=== PATIENT | female | born 1945 | race Caucasian/White ===

== ENCOUNTER 2022-05-12 08:30 | Outpatient (CLI) | payer BC, SELFPAY ==
[2022-05-12 09:07] LABS: Basophils Absolute Auto 0.01 K/uL (0.00-0.30); Basophils Percent Auto 0.2 % (0.0-3.0); Eosinophils Absolute Auto 0.06 K/uL (0.00-0.50); Eosinophils Percent Auto 1.1 % (0.0-7.0); Hematocrit 46.8 % (33.0-51.0); Hemoglobin* 15.7 gm/dL (12.0-16.0); Lymphocytes Percent Auto 13.9 % (20-44); Mean Corpuscular HGB Conc 34 gm/dL (32-36); Mean Corpuscular Hemoglobin 30 pg (26-34); Mean Corpuscular Volume 89 fL (80-100); Monocytes Absolute Auto 0.37 K/UL (0.00-0.90); Monocytes Percent Auto 6.9 % (0.0-11.0); Neutrophils Percent Auto 77.9 % (42.0-72.0); Platelet Count* 167 K/uL (140-440); Red Blood Count 5.25 m/uL (4.00-5.20); White Blood Count* 5.34 K/uL (4.50-11.00)
[2022-05-12 09:09] LABS: Slide Review Reflex No
[2022-05-12 09:11] LABS: Appearance Urine Clear (Clear); Bilirubin Urine Negative (Negative); Blood Urine Trace-lysed (Negative); Color Urine Yellow (Yellow); Glucose Urine Negative (Negative); Ketones Urine 1+ (Negative); Protein Urine Negative (Negative); pH Urine 5.5 (5.0-8.5)
[2022-05-12 09:12] LABS: Nitrite Urine Negative (Negative); Urobilinogen Urine 0.2 (0.2-1.0)
[2022-05-12 09:13] LABS: Leukocyte Esterase Urine Negative (Negative)
[2022-05-12 09:16] LABS: RBC Urine 0-2 (0-2); Squamous Epithelial Cell Urine Few (None-Few); WBC Urine 0-2 (0-5)
[2022-05-12 14:09] LABS: Chloride* 103 mmol/L (96-114); Potassium* 4.5 mmol/L (3.6-5.1); Sodium* 137 mmol/L (135-149)
[2022-05-12 14:12] LABS: Blood Urea Nitrogen* 14 mg/dL (7-30); Carbon Dioxide* 25 mmol/L (20-32); Creatinine* 0.7 mg/dL (0.5-1.5); Estimated Glomerular Filt Rate 89 ml/min
[2022-05-12 14:13] LABS: Calcium* 9.4 mg/dL (8.4-10.6); Glucose* 102 mg/dL (60-115)
[2022-05-12 14:21] LABS: Free T4 Free Thyroxine* 1.13 ng/dL (0.70-1.85); Vitamin D 25 Hydroxy* 63 ng/mL (30-80)
== END 2022-05-12 08:31 | disposition home or self-care (01) ==
PROVIDERS: PCP Family Medicine; Visit Provider Family Medicine
DX: I10 Essential (primary) hypertension (principal); E03.9 Hypothyroidism, unspecified; R53.82 Chronic fatigue, unspecified; A15.9 Respiratory tuberculosis unspecified; R35.0 Frequency of micturition
CPT/HCPCS: 80048; 81003; 81015; 82306; 84439; 84443; 85025; 86480; 87086

== ENCOUNTER 2022-07-10 08:25 | Outpatient (CLI) | payer BC, SELFPAY ==
[2022-07-10 15:26] LABS: Vitamin B12* 910 pg/mL (243-894)
== END 2022-07-10 08:26 | disposition home or self-care (01) ==
LOC: LKVREF 08:27
PROVIDERS: PCP Family Medicine; Visit Provider Family Medicine
DX: G62.9 Polyneuropathy, unspecified (principal); R35.0 Frequency of micturition; E03.9 Hypothyroidism, unspecified; I10 Essential (primary) hypertension; E74.39 Other disorders of intestinal carbohydrate absorption; R31.9 Hematuria, unspecified
CPT/HCPCS: 82607

== ENCOUNTER 2023-04-16 09:20 | Outpatient (CLI) | payer MEDICARE, SELFPAY | END 2023-04-16 09:21 | disposition home or self-care (01) | PROVIDERS: PCP Family Medicine; Visit Provider Family Medicine | DX: I71.9 Aortic aneurysm of unspecified site, without rupture; I51.7 Cardiomegaly; I34.0 Nonrheumatic mitral (valve) insufficiency; I35.1 Nonrheumatic aortic (valve) insufficiency; I10 Essential (primary) hypertension | CPT/HCPCS: 93306 ==

== ENCOUNTER 2023-04-22 08:44 | Outpatient (CLI) | payer MEDICARE, SELFPAY | END 2023-04-22 08:45 | disposition home or self-care (01) | PROVIDERS: PCP Family Medicine; Visit Provider Family Medicine | DX: R53.83 Other fatigue (principal); E03.9 Hypothyroidism, unspecified; I10 Essential (primary) hypertension; I71.9 Aortic aneurysm of unspecified site, without rupture | CPT/HCPCS: 82607; 82728; 83540; 84443 ==

== ENCOUNTER 2023-07-06 09:43 | Outpatient (CLI) | payer MEDICARE, SELFPAY | END 2023-07-06 09:44 | disposition home or self-care (01) | PROVIDERS: PCP Family Medicine; Visit Provider Family Medicine | DX: R53.83 Other fatigue (principal); E03.9 Hypothyroidism, unspecified; R31.9 Hematuria, unspecified; I10 Essential (primary) hypertension; R19.7 Diarrhea, unspecified | CPT/HCPCS: 80076; 82088; 83880; 87086 ==

== ENCOUNTER 2023-07-21 08:51 | Outpatient (CLI) | payer MEDICARE, SELFPAY | END 2023-07-21 08:52 | disposition home or self-care (01) | LOC: NFLDREF 07-22 10:33 | PROVIDERS: PCP Family Medicine; Referring Provider Family Medicine; Visit Provider Family Medicine | DX: I10 Essential (primary) hypertension (principal); R53.83 Other fatigue; E03.9 Hypothyroidism, unspecified; Z91.148 Patient's other noncompliance with medication regimen for other reason | CPT/HCPCS: 80048; 82533 ==

== ENCOUNTER 2023-08-24 10:04 | Outpatient (CLI) | payer MEDICARE, SELFPAY | END 2023-08-24 10:05 | disposition home or self-care (01) | PROVIDERS: PCP Family Medicine; Visit Provider Family Medicine | DX: Z00.00 Encounter for general adult medical examination without abnormal findings (principal); E03.9 Hypothyroidism, unspecified; I10 Essential (primary) hypertension; R53.83 Other fatigue; R79.89 Other specified abnormal findings of blood chemistry; E78.00 Pure hypercholesterolemia, unspecified | CPT/HCPCS: 80061; 80076; 87086; 87186 ==

== ENCOUNTER 2023-09-27 08:06 | Outpatient (CLI) | payer MEDICARE, SELFPAY | END 2023-09-27 08:07 | disposition home or self-care (01) | LOC: NFLDREF 09-28 16:03 | PROVIDERS: PCP Family Medicine; Referring Provider Family Medicine; Visit Provider Family Medicine | DX: N39.0 Urinary tract infection, site not specified (principal) | CPT/HCPCS: 87086 ==

== ENCOUNTER 2023-10-12 08:23 | Outpatient (CLI) | payer MEDICARE, SELFPAY | END 2023-10-12 08:24 | disposition home or self-care (01) | PROVIDERS: PCP Family Medicine; Visit Provider Family Medicine | DX: Z00.00 Encounter for general adult medical examination without abnormal findings (principal); R63.4 Abnormal weight loss; R53.83 Other fatigue; E03.9 Hypothyroidism, unspecified; R35.0 Frequency of micturition; E05.90 Thyrotoxicosis, unspecified without thyrotoxic crisis or storm; I10 Essential (primary) hypertension | CPT/HCPCS: 80048; 80076; 82306; 84446; 84590; 84597 ==

== ENCOUNTER 2024-05-15 11:55 | Outpatient (CLI) | payer MEDICARE, SELFPAY ==
--- OUTSIDE RECORDS SUMMARY | 2024-05-15 12:03 | XMS_ITS | Clinical Summary ---
Author Organization [facility] Address [place], [place] [address] Care Team Providers Care Clinical Analyst Name Role Phone Keyshawn Jansen MD Primary Care Provider Unavail able Allergies Active Allergy Reactions Criticality Noted Date Comments Calcium Channel Blocking Age nt Diltiazem Analogues Headache 09/17/2010 migraines Erythromycin GI Upset 09/17/2010 Penicillins Rash High 09/17/2010 Medications No known medications Active Problems Problem Noted Date Diagnosed Date Primary hypertension 02/25/2023 Ascending aortic aneurysm (HC), 4.5 cm, 2018 Nausea 02/25/2023 cataract of both eyes 02/25/2023 Uterine prolapse 02/25/2023 Peripheral sensory neuropathy 02/25/2023 Social History Tobacco Use Types Packs/Day Years Used Date Smoking Tobacco: Never Smokeless Tobacco: Never Tobacco Cessation:Counseling Given: Not Answered Alcohol Use Standard Drinks/Week Comments No 0 (1 standard drink = 0.6 oz pur e alcohol) PHQ-2 Answer Date Recorded PHQ-2 TOTAL SCORE 0 02/25/2023 Social Connections Answer Date Recorded Frequency of Communication with Friends and Fami ly Not on file 03/02/2024 Financial Resource Strain Answer Date R ecorded Difficulty of Paying Living Expenses 3 02/25/2023 Difficulty of Paying Living Expenses Not on file 02/25/2023 Food Insecurity Answer Date Recorded Worried About Running Out of Food in the Last Ye ar 1 02/25/2023 Transportation Needs Answer Date Record ed Lack of Transportation (Medical) 1 02/25/2023 Housing Stability Answer Date Recorded Unable to Pay for Housing in the Last Year 1 02/25/2023 Sex and Gender Information Value Date Recorded Sex Assigned at Not on file Gender Identity Not on file Sexual Orientation Not on file Obstetrics History Last Filed Vital Signs Vital Sign Reading Time Taken Comments Blood Pressure 168/90 02/25/2023 8:27 AM CDT Pulse 69 02/25/2023 8:27 AM CDT Temperature 37 ??C (98.6 ??F) 09/17/2010 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 Respiratory Rate 16 09/02/2018 9:25 AM LAND SURVEYING SURVEY WORKER Oxygen Saturation 97% 09/17/2010 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 Inhaled Oxygen Concentration - - Weight 75.8 kg (167 lb) 02/25/2023 8:27 AM CDT Height 156.8 cm (5' 1.75) 02/25/2023 8:27 AM CD T Body Mass Index 30.79 02/25/2023 8:27 AM CDT Plan of Treatment Health Maintenance Due Date Last Done Comments Tdap 1955 Hepatitis C screening for age 18-79 1962 Tetanus booster 1964 Zoster (shingles) series for age 50+ (1 of 2) 09/22/19 94 DEXA/DXA scan for age 65+ 2009 Medicare Wellness for age 65+ 2009 Pneumococcal series for age 65+ (1 of 1 - PCV) 009 COVID-19 vaccine series ( - 2022-24 season) 3 BMI (ht and wt on same day) for age 18+ 02/26/2024 0 02/25/2023 Depression screening for age 12+ 02/26/2024 02/26/20 23 Influenza for age 65+ 06/11/2024 Care Teams Clinical Analyst Relationship Specialty Start Date End Date Keyshawn Jansen MD PCP - General 07/13/07
--- OUTSIDE RECORDS SUMMARY | 2024-05-15 12:03 | XMS_ITS | Referral Summary ---
Author Organization [facility] Address [address] [place] [id number] Care Team Providers Care Pediatric Genetic Counselor Name Role Phone Keyshawn Jansen MD Primary Care Provider [phone] Allergies Active Allergy Reactions Criticality Noted Date Comments Aspirin 09/14/2013 Gi distubance Azithromycin GI Disturbance 09/04/2013 Calcium Channel Blockers Unknown High 09/04/2013 Migraines x 3days Erythromycin 09/14/2013 Severe diarrhea and stomach pain Metoprolol Tartrate 09/14/2013 Ineffective (35 yrs of beta blockers have not worked for BP) Nsaids 09/14/2013 Gi disturbance Penicillins Rash Low 09/04/2013 Severe itching entire body Quinapril Hcl Anaphylaxis High 09/04/2013 Acetaminophen-Guaifenesi n 09/14/2013 [place] funny, don't ever want to take again Medications No known medications Active Problems Problem Noted Date Diagnosed Date Essential hypertension, malignant 12/10/2017 Dysuria 12/10/2017 Migraines Social History Tobacco Use Types Packs/Day Years Used Date Smoking Tobacco: Never Smokeless Tobacco: Never Alcohol Use Standard Drinks/Week Comments No 0 (1 standard drink = 0.6 oz pur e alcohol) Sex and Gender Information Value Date Recorded Sex Assigned at Not on file Gender Identity Not on file Sexual Orientation Not on file Last Filed Vital Signs Vital Sign Reading Time Taken Comments Blood Pressure 202/104 12/10/2017 11:37 AM CALL CENTER TRAINER Pulse 80 12/10/2017 11:37 AM CALL CENTER TRAINER Temperature 36.4 ??C (97.6 ??F) 12/10/2017 11:[address] Respiratory Rate 16 09/15/2013 7:15 PM CALL CENTER TRAINER Oxygen Saturation 98% 09/15/2013 7:15 PM CALL CENTER TRAINER Inhaled Oxygen Concentration - - Weight 81.2 kg (179 lb) 12/10/2017 11:37 AM CALL CENTER TRAINER Height 160 cm (5' 3) 12/10/2017 11:37 AM CALL CENTER TRAINER Body Mass Index 31.71 12/10/2017 11:37 AM CALL CENTER TRAINER Plan of Treatment Not on file Care Teams Pediatric Genetic Counselor Relationship Specialty Start Date End Date Keyshawn Jansen MD [facility] [address] [place] [address] PCP - General Family Practice 07/30/15
--- OUTSIDE RECORDS SUMMARY | 2024-05-15 12:03 | XMS_ITS | Clinical Summary ---
Author Organization [facility] Address [address] [place] [id number] Care Team Providers Care Seed Potato Arranger Name Role Phone Keyshawn Jansen MD Primary Care Provider [phone] Allergies Active Allergy Reactions Criticality Noted Date [...] Hcl Anaphylaxis High 09/04/2013 Acetaminophen-Guaifenesi n 09/14/2013 [place] funny, don't ever want to take again Medications No known medications Active Problems Problem Noted Date Diagnosed Date Essential hypertension, malignant 12/10/2017 Dysuria 12/10/2017 Migraines Family History Medical History Relation Comments C.A.D. Father Genitourinary Problems Mother Relation Status Comments Father Mother Social History Tobacco Use Types Packs/Day Years [...] Comments Blood Pressure 202/104 12/10/2017 11:37 AM MANAGER SEARCH Pulse 80 12/10/2017 11:37 AM MANAGER SEARCH Temperature 36.4 ??C (97.6 ??F) 12/10/2017 11:[address] Respiratory Rate 16 09/15/2013 7:15 PM MANAGER SEARCH Oxygen Saturation 98% 09/15/2013 7:15 PM MANAGER SEARCH Inhaled Oxygen Concentration - - Weight 81.2 kg (179 lb) 12/10/2017 11:37 AM MANAGER SEARCH Height 160 cm (5' 3) 12/10/2017 11:37 AM MANAGER SEARCH Body Mass Index 31.71 12/10/2017 11:37 AM MANAGER SEARCH Plan of Treatment Not on file Care Teams Seed Potato Arranger Relationship Specialty Start Date End Date Keyshawn Jansen MD [facility] [address] [place] [address] PCP - General Family Practice 07/30/15
== END 2024-05-15 11:56 | disposition home or self-care (01) ==
PROVIDERS: PCP Family Medicine; Visit Provider Family Medicine
DX: I10 Essential (primary) hypertension (principal)
CPT/HCPCS: 80053; 83690

== ENCOUNTER 2025-06-01 10:34 | Outpatient (CLI) | payer MEDICARE, SELFPAY | END 2025-06-01 10:35 | disposition home or self-care (01) | LOC: NFLDREF 06-05 16:41 | PROVIDERS: PCP Family Medicine; Referring Provider Family Medicine; Visit Provider Family Medicine | DX: R10.9 Unspecified abdominal pain (principal); Z13.6 Encounter for screening for cardiovascular disorders | CPT/HCPCS: 80053; 80061 ==

== ENCOUNTER 2025-06-13 09:41 | Outpatient (CLI) | payer MEDICARE, SELFPAY | END 2025-06-13 09:42 | disposition home or self-care (01) | PROVIDERS: PCP Family Medicine; Visit Provider Family Medicine | DX: E55.9 Vitamin D deficiency, unspecified (principal); R53.83 Other fatigue; R11.0 Nausea; Z86.39 Personal history of other endocrine, nutritional and metabolic disease; Z13.810 Encounter for screening for upper gastrointestinal disorder; R53.81 Other malaise | CPT/HCPCS: 82306; 82607; 82728; 82784; 83540; 83550; 84443; 86231; 86258; 86364 ==

== ENCOUNTER 2025-06-19 08:40 | Outpatient (CLI) | payer MEDICARE, SELFPAY | END 2025-06-19 08:41 | disposition home or self-care (01) | PROVIDERS: PCP Family Medicine; Visit Provider Family Medicine | DX: I16.0 Hypertensive urgency (principal); Z01.89 Encounter for other specified special examinations | CPT/HCPCS: 82384; 84590 ==

== ENCOUNTER 2025-09-26 08:48 | Outpatient (CLI) | payer MEDICARE, SELFPAY | END 2025-09-26 08:49 | disposition home or self-care (01) | PROVIDERS: PCP Family Medicine; Visit Provider Family Medicine | DX: Z00.00 Encounter for general adult medical examination without abnormal findings (principal); R68.83 Chills (without fever); Z11.1 Encounter for screening for respiratory tuberculosis | CPT/HCPCS: 80053; 86140; 86480 ==